=== PATIENT | female | born 1995 | race Two or more races ===

== ENCOUNTER 2024-08-31 09:40 | Observation (INO) | payer OTHER, SELFPAY ==
[2024-08-31 09:44] VITALS: BP 143/70; PULSE 90; RESP 17; TEMP 36.9; O2SAT 99; BMI 45.1
[2024-08-31 09:45] VITALS: BP 143/70; PULSE 90
--- NOTE | 2024-08-31 09:59 | XR_ITS ---
Examination: Biophysical profile, ultrasound Date and time of exam: August 31, 2024 1026 hours INDICATIONS: Nonreactive NST in the doctor's office today Technique: Multiple transabdominal sonographic images of the pelvis abdomen obtained. Attention is directed to the breathing movement, gross body movement, amniotic fluid volume and tone. Findings: Amniotic fluid index 12.2 cm Total biophysical profile is 8 of 8. breathing movement is 2. Gross body movement is 2. tone is 2. Qualitative amniotic fluid volume is 2 Impression: Biophysical profile is 8 of 8.
[2024-08-31 10:13] VITALS: BP 140/69; PULSE 89
== END 2024-08-31 11:26 | disposition home or self-care (01) ==
PROVIDERS: Admitting Provider Specialist; Visit Provider Specialist
DX: Z34.83 Encounter for supervision of other normal pregnancy, third trimester (principal); Z36.2 Encounter for other antenatal screening follow-up; Z3A.39 39 weeks gestation of pregnancy
CPT/HCPCS: 59025; 59899; 76819

== ENCOUNTER 2024-09-04 07:07 | Inpatient (IN) | payer OTHER, SELFPAY ==
[2024-09-04] VITALS (39 sets, daily range): BP systolic 121–151; BP diastolic 61–91; PULSE 81–97; RESP 16–18; TEMP 36.3–37.3; O2SAT 90–99; BMI 45.1
--- NOTE | 2024-09-04 08:24 | XR_ITS ---
Examination: Complete OB ultrasound greater than 14 weeks Date and time of exam: September 04, 2024 0915 hrs. Indications: Leaking amniotic fluid beginning 8:00 AM today Findings: Viable intrauterine single fetus with single amniotic sac presentation cephalic spine maternal right Cardiac motion 129 BPM Placenta anterior grade 3 Umbilical cord insertion is seen Amniotic fluid index 3.3 cm Ovaries obscured by bowel gas. Composite estimated gestational age based on BPD, head circumference, abdominal circumference, femur length is 39 weeks 2 days Estimated weight 3783.0 g. Survey of intracranial anatomy, spinal anatomy, abdominal anatomy, four-chamber heart performed with no abnormalities identified. Impression: Viable intrauterine gestation cephalic presentation. Estimated gestational age 39 weeks 2 days Amniotic fluid index 3.3 cm
[2024-09-04] MEDS: SODIUM CHLORIDE 0.9% 1000 ML 1,000 ML 100 ML IV (09:03)
[2024-09-04 09:17] LABS: Basophils % (Auto) 0 % (0-2.5); Eosinophils % (Auto) 0 % (0-10); Hematocrit 34.9 % (36.0-46.0); Hemoglobin 11.6 g/dL (12.0-16.0); Immature Granulocytes % (Auto) 1 % (0-0); Immature Granulocytes Auto 0.05 Thou/mm3 (0.00-0.00); Lymphocytes # (Auto) 1.5 Thou/mm3 (1.0-4.8); Lymphocytes % (Auto) 15 % (10-50); Mean Corpuscular HGB Conc 33.2 g/dl (31.0-37.0); Mean Corpuscular Volume 84 fL (80-100); Monocytes # (Auto) 0.4 Thou/mm3 (0.0-0.8); Monocytes % (Auto) 4 % (0-12); Neutrophils # (Auto) 7.8 Thou/mm3 (1.8-7.7); Neutrophils % (Auto) 80 % (37-80); Nucleated Red Blood Cell % 0 /100 WBC (0); Platelet Count 315 Thou/mm3 (140-440); RDW Standard Deviation 46.9 fL (36.4-46.3); Red Blood Count 4.14 Miln/mm3 (4.00-5.20); White Blood Count 9.8 Thou/mm3 (3.6-11.0)
[2024-09-04 09:18] LABS: ROM Kit Exp Date# 110627; ROM Kit Lot # 57805053; ROM Swab Mixed By: YOUNB; Rupture of Fetal Membranes Positive (Negative); Swb Mxed in Solvent 1 min? Yes
[2024-09-04 09:42] LABS: Alanine Aminotransferase 14 U/L (10-49); Albumin, Serum 4.2 gm/dL (3.5-5.0); Albumin/Globulin Ratio 1.4 (1.2-2.2); Alkaline Phosphatase 174 U/L (46-116); Anion Gap 8 (7-16); Aspartate Amino Transferase 15 U/L (0-34); BUN/Creatinine Ratio 18 Ratio (12-20); Bilirubin,Total 0.2 mg/dL (0.3-1.2); Blood Urea Nitrogen 11 mg/dL (9-23); Calcium 9.2 mg/dL (8.3-10.6); Calcium (Corrected) 9.2 mg/dL (8.5-10.1); Carbon Dioxide 21.1 mMol/L (20.0-31.0); Chloride 106 mMol/L (98-107); Creatinine (Component) 0.6 mg/dL (0.6-1.3); Estimated Creatinine Clearance 232.5 mL/min (>60); Glucose 88 mg/dL (74-106); LDH (Lactate Dehydrogenase) 143 U/L (120-246); Osmolality,Calculated 268 (275-295); Potassium 4.1 mMol/L (3.4-5.1); Sodium 135 mMol/L (136-145); Total Protein 7.2 gm/dL (5.7-8.2); eGFR > 60 See Note
[2024-09-04 09:50] LABS: INR 0.9 (0.9-1.3); Partial Thromboplastin Time 24.6 Seconds (22.0-36.0)
[2024-09-04 09:55] LABS: Fibrinogen 855 mg/dL (175-375)
[2024-09-04 11:35] LABS: Collection Type, Urine Clean Catch
--- NOTE | 2024-09-04 11:59 | PD.LDHP ---
Documentation for date of: 09/04/24 OB Labor/Induct. HPI History of Present Illness : 3 Para: 1 Term pregnancies: 0 pregnancies: 1 Living children: 1 History of Abortions: Spontaneous and Elective: 1 History of Vaginal deliveries: 1 History of sections: No History of : No ADRIÁN: 09/06/24 History of present illness: H and P dictated in Nuance [id number] History of Present Adequate Care: Yes Labs Labs: Negative: Hepatitis B, HIV, Chlamydia, Gonorrhea and Group Beta Strep Past Medical History Surgical History SURGICAL: Negative Section Meds Home Medications and Allergies Home Medications ?Medication ?Instructions ?Recorded ?Confirmed ?Type aspirin 81 mg capsule 81 mg PO QDAY 08/01/24 09/04/24 History labetalol 200 mg tablet 200 mg PO BID 08/01/24 09/04/24 History vitamin with calcium 1 tab PO 1XD 09/04/24 09/04/24 History no.72-iron 27 mg-folic acid 1 mg tablet ( Plus (calcium carbonate)) Allergies Allergy/AdvReac Type Severity Reaction Status Date / Time No Known Allergies Allergy Verified 09/04/24 07:28 OB Exam Physical Exam Vital signs: Temp Pulse Resp BP Pulse Ox 98.4 F 81 16 135/72 H 98 09/04/24 08:56 09/04/24 11:28 09/04/24 08:56 09/04/24 11:28 09/04/24 08:17 OB Results Labs 09/04/24 08:50 09/04/24 08:50 Labs: Short CBC 09/04/24 Range/Units 08:50 WBC 9.8 (3.6-11.0) Thou/mm3 Hgb 11.6 L (12.0-16.0) g/dL Hct 34.9 L (36.0-46.0) % Plt Count 315 (140-440) Thou/mm3 BMP 09/04/24 08:50 Sodium 135 L Potassium 4.1 Chloride 106 Carbon Dioxide 21.1 BUN 11 Creatinine 0.6 Glucose 88 Calcium 9.2 Liver Function 09/04/24 Range/Units 08:50 Total Bilirubin 0.2 L (0.3-1.2) mg/dL AST 15 (0-34) U/L ALT 14 (10-49) U/L Alkaline Phosphatase 174 H (46-116) U/L Albumin 4.2 (3.5-5.0) gm/dL
[2024-09-04 12:00] LABS: Bacteria,Urine Rare; Bilirubin,Urine Negative (Negative); Blood,Urine Negative (Negative); Clarity,Urine Clear (Clear/Hazy); Color,Urine Lt-Yellow (Lt Yel-Yel); Glucose, Urine Negative (Negative); Ketones,Urine Negative (Negative); Leukocyte Esterase,Urine Positive (Negative); Nitrite,Urine Negative (Negative); Protein,Urine Negative (Neg - Trace); RBC,Urine 5 /hpf (0-3); Specific Gravity,Urine 1.014 (1.001-1.035); Squamous Epithelial Cell,Urine 5 /hpf (0-5); Urobilinogen,Urine Negative mg/dL (0.0-1.0); WBC,Urine 7 /hpf (0-5)
[2024-09-04 12:23] LABS: Creatinine,Random Urine 61 mg/dL (30-125)
[2024-09-04] MEDS: cefTRIAXone/D5w 1gm IV premix 50 ML IV (13:21)
--- NOTE | 2024-09-04 14:02 | ESHP_ITS ---
RE: CRISTINO GRANDE : 1995 DATE OF ADMISSION: 09/04/2024 HISTORY OF PRESENT ILLNESS: This is a 29-year-old 3, para 0-1-1-1 with due date of 09/06 with intrauterine at 39 weeks and 5 days who presents to labor and delivery complaining of leaking fluid and is noted to be grossly ruptured and her AmniSure was also positive. The patient had an ultrasound, which shows an LISSETH of 3.3 and an estimated weight of 3783 g, cephalic. She has a history of chronic hypertension and she takes labetalol at 100 mg b.i.d. Her preeclampsia labs were within normal limits. She denies any pain in her right upper quadrant pain. The patient has history of an incompetent cervix with a prior delivery at 25 weeks. In this , she received a cervical cerclage at 12 weeks and it was removed at 38 weeks. The patient had a Maternal Medicine ultrasound and echocardiogram in her due to having a prior child with a congenital anomaly of the cardiovascular system that did not require surgery and in the patient's current , there were no abnormalities noted on the Maternal Medicine ultrasound. MEDICATIONS: 1. Labetalol 100 mg 1 tablet p.o. b.i.d. 2. Baby aspirin 162 mg p.o. daily. 3. vitamin 1 p.o. daily. ALLERGIES: NO KNOWN DRUG ALLERGIES. PAST MEDICAL HISTORY: Incompetent cervix, cervical dysplasia, chronic hypertension, BMI 44, iron deficiency anemia. SOCIAL HISTORY: She denies any alcohol, drug use or smoking. FAMILY HISTORY: Prior child with congenital cardiac anomaly. OBSTETRIC HISTORY: In 2017, 6 weeks spontaneous AB, no D and C, 05/19/2020, 25- week normal vaginal delivery, 1 pound 13 ounce female, complicated by chorioamnionitis and incompetent cervix and child born with congenital anomaly. PAST SURGICAL HISTORY: Transvaginal cervical cerclage placement on 03/10/2024, and removal of cervical cerclage at 38 weeks' gestation. REVIEW OF SYSTEMS: As above. PHYSICAL EXAMINATION: VITAL SIGNS: Blood pressure 138/84, heart rate 88, respirations 18, temperature 98.2. HEENT: Oropharynx and sclerae are clear. LUNGS: Clear to auscultation bilaterally. HEART: Regular rate and rhythm. ABDOMEN: Gravid term size consistent with 3800 g. PELVIC: See RN notes. EXTREMITIES: Nontender. SKIN: No gross rashes or lesions. NEUROLOGIC: No focal deficits. ASSESSMENT AND PLAN: Intrauterine at 39 weeks and 5 days, spontaneous rupture of membranes, chronic hypertension on labetalol, induction of labor, anticipate spontaneous vaginal delivery. Informed consent was obtained and the patient has been aware of the risks, complications, alternatives, benefits of operative vaginal delivery and delivery and agrees with these modes of delivery if indicated. DT: 11:54:51 TT: 13:57:00 Ref: [id number] - TID: [id number] [facility]
[2024-09-04] MEDS: MISOPROSTOL 50 mCg TABLET PO ×2 (14:10→18:25)
[2024-09-04 15:54] LABS: Syphilis Nonreactive (Nonreactive)
[2024-09-04] MEDS: LABETALOL 100 MG TABLET PO (17:01)
[2024-09-05] VITALS (119 sets, daily range): BP systolic 124–179; BP diastolic 54–103; PULSE 70–106; RESP 15–18; TEMP 36.4–37.1; O2SAT 88–99
[2024-09-05] MEDS: MISOPROSTOL 50 mCg TABLET PO (01:29)
[2024-09-05] MEDS: RINGERS LACTATED 1000 ML 1,000 ML 999 ML IV (03:33)
--- NOTE | 2024-09-05 07:30 | PD.LDPN ---
Documentation for date of: 09/05/24 OB Labor Progress Note Pain Control Comments: Epidural Pelvic Exam Dilation (cm): 5 Effacement (%): 90 station: -2 Amniotic membrane status: Ruptured Contractions Monitor mode: External Contraction frequency: q3-4 min Status status: Category l Assessment and Plan Comments: Anticipate Labetalol 20mg IV push over 2 min for BP 179/95 Continue Rocephin 1gm IV q 24h for UTI.
[2024-09-05] MEDS: LABETALOL INJ 5 MG/ML VIAL 20 ML 20 MG IVP (07:38)
[2024-09-05] MEDS: OXYTOCIN in NS 30 units 30 UNIT/500 ML BAG IV (08:07)
[2024-09-05] MEDS: LABETALOL INJ 5 MG/ML VIAL 20 ML 40 MG IVP (08:17)
[2024-09-05] MEDS: cefTRIAXone/D5w 1gm IV premix 50 ML IV (08:29)
[2024-09-05] MEDS: CITRIC ACID/SODIUM CITR 15 ML UDC (BICITRA) 30 ML PO (09:17)
[2024-09-05] MEDS: ceFAZolin/D5W 2 GM IV 2 GM/100 ML BAG IV (09:17)
[2024-09-05] MEDS: FAMOTIDINE INJ 10 MG/ML VIAL 2 ML 20 MG IV (09:18)
--- NOTE | 2024-09-05 09:31 | ESDS_ITS ---
DS: Providers Provider Date of admission: 09/05/24 09:02 Primary care physician: Physician No Primary/Family Admitting Provider: Mikie Burt MD Attending Provider on Admission: Mikie Burt MD Attending Provider on DC: Mikie Burt MD Discharging Provider: Mikie Burt MD DS: Diagnosis Problem List Completed Was Problem List Reviewed/Reconciled?: Yes Summary/Hosp Course Brief History: H and P dictated in ance [id number] Peripartum Data Procedures: Procedures Operation Date: 09/05/24 09:45 <No data on this case meets the specified criteria> Time Spent with Patient Time attestation: Total time spent providing and/or coordinating discharge services: Exam Vital Signs Temp Pulse Resp BP Pulse Ox 97.5 F 94 16 169/85 H 99 09/05/24 08:40 09/05/24 09:08 09/04/24 18:00 09/05/24 09:08 09/05/24 09:22 Discharge Plan Plan Patient Disposition: HOME (Self Care) Patient condition on transfer: Stable Prescriptions/Referrals Prescriptions/Med Rec: New hydrocodone-acetaminophen 5-325 mg tablet 1 tab PO Q6H MDD 4 PRN (Reason: pain) Qty: 20 0RF ibuprofen 600 mg tablet 600 mg PO Q6H PRN (Reason: pain) Qty: 30 0RF No Action labetalol 200 mg Tablet 200 mg PO BID aspirin 81 mg Capsule 81 mg PO QDAY Plus (calcium carb) 27 mg iron- 1 mg tablet 1 tab PO 1XD Patient Comments: Take 1 tablet by mouth once a day Referrals: No Primary/Family,Physician [Primary Care Provider] - Patient/Caregiver Discharge Instructions Discharge Activity: activity as tolerated Print Language: Portuguese Stand Alone Forms: Thuy Award Info., Patient Portal Info Letter, Work/Release Restrictions Planned Discharge Date 09/06/24
--- NOTE | 2024-09-05 09:32 | PD.LDPN ---
Documentation for date of: 09/05/24 OB Labor Progress Note Pain Control Comments: Epidural Pelvic Exam Dilation (cm): 5 Effacement (%): 90 station: -2 Amniotic membrane status: Ruptured Contractions Monitor mode: External Contraction frequency: q3-4 min Status status: Category ll Assessment and Plan Comments: BP 169/98 Despite multiple doses of Labetalol BP remains severely elevated with no progress in labor Delivery for uncontrolled HTN Patient was made aware of the risk complications alternatives and benefits of the proposed procedure and she agrees.
[2024-09-05] MEDS: OXYTOCIN in NS 20 units 20 UNIT/1,000 ML BAG 125 UNIT IV (10:37)
[2024-09-05] MEDS: DIPHENOXYLATE/ATROP SULF 1 TAB PO (13:02)
[2024-09-05] MEDS: KETOROLAC INJ 30 MG/ML VIAL IVP ×2 (13:02→22:46)
[2024-09-05 15:49] LABS: Basophils % (Auto) 0 % (0-2.5); Eosinophils % (Auto) 0 % (0-10); Hematocrit 33.4 % (36.0-46.0); Hemoglobin 11.1 g/dL (12.0-16.0); Immature Granulocytes % (Auto) 1 % (0-0); Immature Granulocytes Auto 0.11 Thou/mm3 (0.00-0.00); Lymphocytes # (Auto) 0.7 Thou/mm3 (1.0-4.8); Lymphocytes % (Auto) 4 % (10-50); Mean Corpuscular HGB Conc 33.2 g/dl (31.0-37.0); Mean Corpuscular Hemoglobin 28.1 pg (25.0-35.0); Mean Corpuscular Volume 85 fL (80-100); Monocytes # (Auto) 0.2 Thou/mm3 (0.0-0.8); Monocytes % (Auto) 1 % (0-12); Neutrophils # (Auto) 17.9 Thou/mm3 (1.8-7.7); Neutrophils % (Auto) 94 % (37-80); Nucleated Red Blood Cell % 0 /100 WBC (0); Platelet Count 286 Thou/mm3 (140-440); RDW Standard Deviation 47.2 fL (36.4-46.3); Red Blood Count 3.95 Miln/mm3 (4.00-5.20)
--- NOTE | 2024-09-05 18:26 | OBDSUM_ITS ---
Data (Sage) Data Hx Section: No : 3 Para: 1 Term: 0 : 1 : 1 Delivery Data (Sage) Labor Data ROM Date: 09/04/24 ROM Time: 02:40 Rupture Type: SROM Amniotic Fluid: Thin Meconium Delivery Data EDC: 09/06/24 EDC calculated by:: LMP/early US confirmation Labor Onset Stage 1 Date: 09/05/24 Labor Onset Stage 1 Time: 07: Labor Onset Stage 2 Date: 09/05/24 Labor Onset Stage 2 Time: 07:26 Delivery Date: 09/05/24 Delivery Time: 09:53 Gestational age (weeks): 39 Gestational age (days): 6 Placenta Delivery Date: 09/05/24 Placenta Delivery Time: 09:54 Delivered by: Mikie Burt Delivery nurse: Cristiana Mendes Delivery Method Delivery: Delivery Type: Primary Presentation: Vertex Position: OP Anesthesia Type Primary Anesthesia: Spinal Placenta Placenta Delivery: Manual Placenta Cultures Obtained: No Placenta Sent for Examination: No Cord Sample: Cord Blood Obtained EBL Estimated blood loss (ml): 700 Umbilical Cord Nuchal Cord: x1 Complications Complications: Uterine atony Data (Sage) [place] Data Gender: Male Weight Grams: 3575 1 Minute Total: 8 5 Minute Total: 9
[2024-09-05] MEDS: RINGERS LACTATED 500 ML 500 ML 999 ML IV (20:30)
[2024-09-05] MEDS: LABETALOL 100 MG TABLET 200 MG PO (21:39)
[2024-09-05] MEDS: SIMETHICONE 80 MG CHEW PO (22:47)
[2024-09-06 04:40] VITALS: BP 109/71; PULSE 80; RESP 16; TEMP 36.7; O2SAT 97
[2024-09-06] MEDS: HYDROcodone/APAP 5/325 TABLET 1 TAB PO ×3 (07:28→21:52)
[2024-09-06 08:57] VITALS: BP 138/77; PULSE 79
[2024-09-06] MEDS: LABETALOL 100 MG TABLET 200 MG PO ×2 (08:57→20:15)
[2024-09-06 09:00] VITALS: BP 138/77; PULSE 79; RESP 18; TEMP 37; O2SAT 97
--- NOTE | 2024-09-06 10:19 | ESPR_ITS ---
RE: CRISTINO GRANDE : 1995 DATE OF SERVICE: 09/06/2024 S: Postop day #1, the patient denies any problem or complaints. She is avoiding. She is ambulating. She is tolerating regular diet. She is passing flatus. She denies any excessive vaginal bleeding. She denies any dizziness or lightheadedness. She denies any chest pain, palpitations, shortness of breath, or lower extremity pain. She denies any depression or anxiety. O: Vital Signs: Blood pressure 138/77, heart rate 79, respirations 18, temperature 98.2. Lungs: Clear to auscultation bilaterally. Heart: Regular rate and rhythm. Abdomen: Nondistended. Dressing is dry and intact. Fundus is firm. Extremities: Nontender. LABORATORY DATA: Hemoglobin pre-delivery is 11.6, post-delivery is 11.1. ASSESSMENT: Postop day #1, status post delivery. Uterine anatomy resolved with uterotonics, hemodynamically stable. Chronic hypertension, on labetalol. P: Continue labetalol. Possible discharge home tomorrow. Encourage ambulation. Remove dressing. Discontinue IV. DT: 09:05:02 TT: 10:17:00 Ref: [id number] - TID: [id number]
[2024-09-06] MEDS: cefTRIAXone/D5w 1gm IV premix 50 ML IV (11:20)
[2024-09-06 11:25] VITALS: BP 124/73; PULSE 76; RESP 15; TEMP 36.7; O2SAT 97
[2024-09-06] MEDS: IBUPROFEN TAB 400 MG TABLET 800 MG PO ×2 (12:40→20:14)
[2024-09-06 20:00] VITALS: BP 149/77; PULSE 80; RESP 16; TEMP 37; O2SAT 98
[2024-09-06 20:15] VITALS: BP 149/77; PULSE 80
[2024-09-07] VITALS: BP 134/82; PULSE 81; RESP 18; TEMP 36.8; O2SAT 98
[2024-09-07 04:15] VITALS: BP 139/80; PULSE 79; RESP 18; TEMP 36.9; O2SAT 97
[2024-09-07] MEDS: IBUPROFEN TAB 400 MG TABLET 800 MG PO (06:40)
--- NOTE | 2024-09-07 07:49 | ESOP_ITS ---
RE: CRISTINO GRANDE : 1995 DATE OF OPERATION: 09/05/2024 PREOPERATIVE DIAGNOSES: 1. Intrauterine at 39 weeks and 6 days. 2. Chronic hypertension. 3. Prolonged rupture of membranes. 4. Incompetent cervix. 5. Uncontrolled hypertension. POSTOPERATIVE DIAGNOSES: 1. Intrauterine at 39 weeks and 6 days. 2. Chronic hypertension. 3. Prolonged rupture of membranes. 4. Incompetent cervix. 5. Uncontrolled hypertension. 6. Occiput posterior. 7. Thin meconium amniotic fluid. 8. Uterine atony. PROCEDURE PERFORMED: Primary lower transverse section via Pfannenstiel skin incision. SURGEON: Mikie Burt DO WET END HELPER: DAKSHA Morrison ANESTHESIA: Spinal. ANESTHESIOLOGIST: Sam Price CRNA ESTIMATED BLOOD LOSS: 700 mL. COMPLICATIONS: None. COUNTS: Correct. PATHOLOGY: None. FINDINGS: A live male , cephalic presentation, thin meconium stained amniotic fluid, nuchal cord, occiput posterior. Apgars, see RN notes. Uterus initially atonic, but responded to Uterotonics. Ovaries and fallopian tubes grossly within normal limits. DESCRIPTION OF PROCEDURE: After proper informed consent was obtained and the patient was made aware of the risks, complications, alternatives, and benefits of the proposed procedure, she was taken to the operating room where she underwent induction of spinal anesthesia. She was placed in the dorsal supine position with leftward tilt. She was prepped and draped in a sterile fashion. A timeout was performed. A Pfannenstiel skin incision was made with scalpel and carried through to the underlying layer of fascia with the Bovie. The fascia was nicked in the midline and incision extended bilaterally with the Bovie. The inferior aspect of the fascia incision was grasped with Russel clamps, elevated and the underlying rectus muscles dissected off with the Bovie. The rectus muscles were in the midline. The peritoneum identified between 2 Laury clamps and entered sharply with the Metzenbaum scissors. Incision was extended superiorly and inferiorly with good visualization of the bladder. Bladder blade was inserted. Vesicouterine peritoneum was incised transversely and bladder flap created digitally. The bladder blade was reinserted. The lower uterine segment was incised in transverse fashion with scalpel. The incision was extended bilaterally digitally. The infant's head delivered. The mouth and nose suctioned with bulb suction. The nuchal cord reduced. Shoulder and body delivered atraumatically. The cord was clamped and cut. The infant sent off to awaiting pediatric staff. Cord blood and gases were sent. The placenta was then removed manually. The uterus was exteriorized and cleared of all clots and debris. The uterine incision was repaired with #1-0 chromic catgut suture in a running locking fashion. A second layer of same suture was used to imbricate the first layer and obtained excellent hemostasis. The vesicouterine peritoneum was closed with 2-0 chromic catgut suture in running fashion. The fundus initially was atonic, but responded to Uterotonics in the form of Pitocin, Hemabate, and Methergine and before she got off the OR table, she received 800 Cytotec per rectum. The uterus was returned to the abdomen. The gutters were cleared of all clots and debris. The fundus was firm. The peritoneum was closed with 0 chromic catgut suture in running fashion. The muscle was closed with 0 chromic catgut suture in running fashion. The fascia was closed with 0 Vicryl beginning at each angle and ending at center in running fashion. Subcutaneous tissue was irrigated with normal saline solution and found to be hemostatic and closed with 2-0 chromic catgut suture in running fashion. The skin was closed with 4-0 Monocryl. A Dermabond Perineo dressing was applied and a sterile pressure dressing was applied. Her fundus was firm at the end of the procedure. She was hemodynamically stable with blood pressure of 137/72 and heart rate of 88. She received TXA intraoperatively. She did not require any antihypertensives intraoperatively. I discussed with the patient the nature of her condition, intraoperative findings, and expectation for recovery. All questions answered. DT: 10:25:23 TT: 17:29:00 Ref: [id number] - TID: [id number]
[2024-09-07 08:07] VITALS: BP 146/82; PULSE 87; RESP 19; TEMP 37.1; O2SAT 97
[2024-09-07 08:45] VITALS: BP 135/78; PULSE 83
[2024-09-07] MEDS: LABETALOL 100 MG TABLET 200 MG PO (08:45)
[2024-09-07] MEDS: HYDROcodone/APAP 5/325 TABLET 1 TAB PO (08:46)
--- NOTE | 2024-09-07 09:29 | ESPR_ITS ---
RE: CRISTINO GRANDE : 1995 DATE OF SERVICE: 09/07/2024 S: Postop day #2, the patient denies any problem or complaints. She is voiding. She is ambulating. She is tolerating diet. She is passing flatus. She denies any excessive vaginal bleeding. She denies any dizziness or lightheadedness. She denies any chest pain, palpitations, shortness of breath, or lower extremity pain. She denies any depression or anxiety. O: Vital Signs: Blood pressure is 139/80, heart rate 79, respirations 18, temperature 98.4, and pulse oximetry 97% on room air. Lungs: Clear to auscultation bilaterally. Heart: Regular rate and rhythm. Abdomen: Nondistended. Incision clear and intact. Fundus is firm. Extremities: Nontender. A: Postop day #2, status post delivery complicated by uterine atony, resolved, hemodynamically stable. P: Discharge home. Discharge instructions given. Follow up in the office in 1 week. DT: 07:07:17 TT: 09:27:00 Ref: [id number] - TID: [id number]
[2024-09-09 17:48] LABS: Albumin, Random Urine 100 %; Alpha 1 Globulin, Random Urine 0 %; Alpha 2 Globulin, Random Urine 0 %; Beta Globulin, Random Urine 0 %; Gamma Globulin, Random Urine 0 %; Protein,Total,Random Urine 11 mg/dL (5-24); Protein/Creatinine Ratio 170 mg/g creat (24-184)
[2024-09-10 07:02] LABS: Creatinine, Random Urine 65 mg/dL (20-275)
== END 2024-09-07 11:43 | disposition home or self-care (01) | DRG 786 ==
LOC: S4SX 09-05 09:18 → S4NX 09-05 09:37
PROVIDERS: Admitting Provider Specialist; Visit Provider Specialist
PROC: 10D00Z1 Extraction of Products of Conception, Low, Open Approach (ICD-10-PCS; CPT 59514; principal; 2024-09-05 09:30)
DX: O42.12 Full-term premature rupture of membranes, onset of labor more than 24 hours following rupture (principal); O34.33 Maternal care for cervical incompetence, third trimester; O10.92 Unspecified pre-existing hypertension complicating childbirth; O77.0 Labor and delivery complicated by meconium in amniotic fluid; O69.81X0 Labor and delivery complicated by cord around neck, without compression, not applicable or unspecified; O62.2 Other uterine inertia; Z37.0 Single live birth; Z3A.39 39 weeks gestation of pregnancy
CPT/HCPCS: 36415; 59025; 59899; 76805; 80053; 81001; 82570; 83615; 84112; 84156; 84166; 84550; 85025; 85384; 85610; 85730; 86780; 86850; 86900; 86901; A4649; J0689; J0696; J1100; J1885; J2274; J2405; J2590; J2765; J2795; J3490; J7030; J7120; S0191; A9270; J0690; J1920; J2270

== ENCOUNTER 2025-05-11 05:45 | Day surgery (SDC) | payer OTHER, SELFPAY ==
--- NOTE | 2025-05-07 17:33 | ESHP_ITS ---
RE: CRISTINO GRANDE : 1995 DATE OF ADMISSION: 05/12/2025 DATE OF SURGERY: 05/12/2025 HISTORY OF PRESENT ILLNESS: A 29-year-old 3, para 2-0-1-2 with cervical dysplasia who presents for LEEP cone biopsy of the cervix. ALLERGIES: NO KNOWN DRUG ALLERGIES. MEDICATIONS: None. PAST MEDICAL HISTORY: Gestational hypertension, obesity, incompetent cervix, delivery, borderline systolic hypertension. SOCIAL HISTORY: She denies any alcohol, drug use, or smoking. She is . FAMILY HISTORY: Denies. REVIEW OF SYSTEMS: She denies any chest pain, palpitations, cough, fever, shortness of breath or lower extremity pain. PHYSICAL EXAMINATION: VITAL SIGNS: Blood pressure 142/68, heart rate 88, respirations 18, temperature 98.6. HEENT: Oropharynx and sclerae are clear. LUNGS: Clear to auscultation bilaterally. HEART: Regular rate and rhythm. ABDOMEN: Nontender, nondistended. EXTREMITIES: Nontender. SKIN: No gross rashes or lesions. NEUROLOGIC: No deficit. ASSESSMENT AND PLAN: Cervical dysplasia. PLAN: LEEP cone biopsy of the cervix. Informed consent was obtained. The patient was made aware of the risks, complications, alternatives, and benefits of the proposed procedure and she agrees. DT: 16:26:19 TT: 17:32:00 Ref: [id number] - TID: [id number] MTDD
[2025-05-10 08:48] VITALS: BMI 40.6
[2025-05-10 09:26] LABS: Basophils # (Auto) 0.0 Thou/mm3 (0.0-0.2); Basophils % (Auto) 0 % (0-2.5); Eosinophils # (Auto) 0.1 Thou/mm3 (0.0-0.5); Eosinophils % (Auto) 2 % (0-10); Hematocrit 38.4 % (36.0-46.0); Hemoglobin 12.6 g/dL (12.0-16.0); Immature Granulocytes Auto 0.02 Thou/mm3 (0.00-0.00); Lymphocytes # (Auto) 1.5 Thou/mm3 (1.0-4.8); Lymphocytes % (Auto) 25 % (10-50); Mean Corpuscular HGB Conc 32.8 g/dl (31.0-37.0); Mean Corpuscular Hemoglobin 28.3 pg (25.0-35.0); Mean Corpuscular Volume 86 fL (80-100); Monocytes # (Auto) 0.3 Thou/mm3 (0.0-0.8); Monocytes % (Auto) 5 % (0-12); Neutrophils # (Auto) 4.2 Thou/mm3 (1.8-7.7); Neutrophils % (Auto) 68 % (37-80); Nucleated Red Blood Cell # 0.00 Thou/mm3 (0.00-0.00); Nucleated Red Blood Cell % 0 /100 WBC (0); Platelet Count 338 Thou/mm3 (140-440); RDW Standard Deviation 43.6 fL (36.4-46.3); Red Blood Count 4.45 Miln/mm3 (4.00-5.20); White Blood Count 6.1 Thou/mm3 (3.6-11.0)
[2025-05-10 09:40] LABS: INR 1.0 (0.9-1.3); Partial Thromboplastin Time 26.2 Seconds (22.0-36.0); Prothrombin Time 10.6 Seconds (9.0-12.2)
[2025-05-10 09:44] LABS: Alanine Aminotransferase 28 U/L (10-49); Albumin, Serum 4.1 gm/dL (3.5-5.0); Albumin/Globulin Ratio 1.5 (1.2-2.2); Alkaline Phosphatase 106 U/L (46-116); Anion Gap 10 (7-16); Aspartate Amino Transferase 18 U/L (0-34); BUN/Creatinine Ratio 15 Ratio (12-20); Beta HCG,Quantitative < 1 mIU/mL (<5.0); Bilirubin,Total 0.3 mg/dL (0.3-1.2); Blood Urea Nitrogen 9 mg/dL (9-23); Calcium 8.5 mg/dL (8.3-10.6); Calcium (Corrected) 8.5 mg/dL (8.5-10.1); Carbon Dioxide 24.7 mMol/L (20.0-31.0); Chloride 105 mMol/L (98-107); Creatinine (Component) 0.6 mg/dL (0.6-1.3); Estimated Creatinine Clearance 156.8 mL/min (>60); Globulin 2.8 gm/dL (2.3-3.5); Glucose 102 mg/dL (74-106); Osmolality,Calculated 278 (275-295); Potassium 3.8 mMol/L (3.4-5.1); Sodium 140 mMol/L (136-145); Total Protein 6.9 gm/dL (5.7-8.2); eGFR > 60 See Note
[2025-05-11] VITALS (7 sets, daily range): BP systolic 126–173; BP diastolic 79–99; PULSE 84–97; RESP 15–20; TEMP 36.6–37.1; O2SAT 97–100; BMI 40.8
--- NOTE | 2025-05-11 07:15 | CHAP ---
was present. Visited briefly with couple and had a prayer.
--- NOTE | 2025-05-11 08:10 | SUR.PHASEI ---
0810 Patient arrived to recovery resting comfortably in [facility], on oxygen via oxy mask, drowsy and talking with staff, breathing unlabored, vital signs stable, denies pain and nausea
--- NOTE | 2025-05-11 08:58 | SUR.PHASEII ---
0858 Patient meets discharge criteria from recovery, awake and alert, breathing unlabored, vital signs stable, denies pain, dressing intact; no bleeding noted, drinking apple juice; denies nausea, assisted with dressing into her clothing by her , discharge instructions given to patient and patients , signed discharge instructions. Patient given all her belongings prior to discharge, transported via wheelchair and left in a private vehicle.
--- NOTE | 2025-05-11 10:09 | PD.GYNPROC ---
Operative Note - TWISTER TENDER Procedure Date of procedure: 05/11/25 Procedure Performed: LEEP cone biopsy of the cervix uteri Indication: Cervical dysplasia Pre-Op diagnosis: Cervical dysplasia Post-Op diagnosis: Cervical dysplasia Anesthesia type: General Procedure description: After proper informed consent was obtained and the patient was made aware of the risks, complications, alternatives and benefits of the proposed procedure she was taken to the operating room where she underwent induction of general anesthesia. She is placed in the dorsal lithotomy position. A red rubber catheter was placed and the bladder drained the bladder vault contents. She was prepped and draped in usual sterile fashion. A timeout was performed. A bivalve insulated speculum was placed in the vagina. The cervix was painted with Lugol's solution. the cervix was circumferentially injected with a 10 cc solution of dilute vasopressin (20 units and 100 cc of injectable saline). Using the 2.0 x 2.0 cm loop electrode the squamocolumnar junction was excised and the specimen inked at 12:00. A 1.0 x 1.0 loop electrode was utilized to obtain a Top-Hat specimen of the Endo cervix. Using a Kevorkian curette the endocervical canal was curetted and specimen placed on Telfa. All 3 specimens sent to pathology. Hemostasis was achieved with the Bovie cautery and application of a Monsel solution. All instruments were removed from the vagina. Counts were correct. She was reversed from general anesthesia in the supine position. She was transferred to the recovery room in stable condition. I discussed with the patient's the nature of her condition, the intraoperative findings, the expectation for recovery Specimen: other (1. LEEP specimen inked at 12 oclock 2. Top Hat Specimen of Endocervix. ) Estimated blood loss (ml): 5 Findings: Normal appearing cervical transformation zone No gross vaginal lesions. Complications: none Surgical staff Operation Date: 05/11/25 07:30 Case Staff Anesthesiologist: Sameer Peña Diagnosis Discharge Diagnosis (1) Dysplasia of cervix (uteri): Status: Acute Problem List Completed Was Problem List Reviewed/Reconciled?: Yes
== END 2025-05-11 08:58 | disposition home or self-care (01) ==
PROVIDERS: Referring Provider Specialist; Visit Provider Specialist
PROC: 0UBC7ZZ Excision of Cervix, Via Natural or Artificial Opening (ICD-10-PCS; CPT 57522; principal; 2025-05-11 07:30)
DX: N87.9 Dysplasia of cervix uteri, unspecified (principal)
CPT/HCPCS: 57522; 36415; 80053; 84702; 85025; 85610; 85730; 86850; 86900; 86901; A4217; A4649; J0131; J1100; J1885; J2250; J2405; J2598; J2704; J3010; J3490; A9270